=== PATIENT | male | born 1955 | race Caucasian/White ===

== ENCOUNTER 2020-09-01 21:48 | Emergency (ER) | payer MEDICARE, MEDICAID ==
[~2020-09-01] VITALS: Ht 177.8 cm; Wt 71.7 kg
[2020-09-01 21:56] VITALS: BP 150/81
[2020-09-01] MEDS: BACITRACIN OINT 500 UNITS/GM PKT TP ONE (22:25)
[2020-09-01 22:55] VITALS: BP 150/81
== END 2020-09-01 22:56 | disposition home or self-care (01) ==
LOC: MED 21:48
DX: S81.802A Unspecified open wound, left lower leg, initial encounter (principal); X58.XXXA Exposure to other specified factors, initial encounter; Y93.89 Activity, other specified; Y92.89 Other specified places as the place of occurrence of the external cause; Y99.8 Other external cause status
CPT/HCPCS: 99282; 99283

== ENCOUNTER 2020-09-21 12:41 | Emergency (ER) | payer MEDICARE, MEDICAID ==
[~2020-09-21] VITALS: Ht 182.9 cm; Wt 72.6 kg
[2020-09-21 12:44] VITALS: BP 156/78
--- NOTE | 2020-09-21 12:52 | NUR ---
PATIENT AMBULATED TO ER BED 04
--- NOTE | 2020-09-21 13:16 | NUR ---
65 YEAR OLD MALE REFUSES PRIMARY NURSE ASSESSMENT, STATES THAT HE ALREADY TALKED TO THE TRIAGE NURSE AND DOES NOT WANT TO REPEAT ANYTHING. TRIAGE REPORTS PT IS HERE FOR LEFT FOOT ABSCESS. PT ALERT AND AWAKE, BREATHING EVEN AND UNLABORED. BED IN LOWEST POSITION, LOCKED, BED RAIL UPX1. PMH - NEUROPATHY ALLERGIES - NKA
--- NOTE | 2020-09-21 13:30 | NUR ---
PATIENT VERBALLY ABUSIVE TO STAFF, YELLING "FUCK YOU." SECURITY CALLED
--- NOTE | 2020-09-21 13:52 | NUR ---
PATIENT LEFT FACILITY AT THIS TIME WITHOUT TELLING PRIMARY NURSE BEFORE DISCHARGE GIVEN, CHARGE NURSE AWARE
--- NOTE | 2020-09-21 14:09 | NUR ---
Noemy jung in ED - 09/21/20 at 1410 by [email or web address] STILL UNABLE TO FIND PATIENT, HAS NOT RETURNED TO ROOM. CHARGE NURSE AWARE
--- NOTE | 2020-09-21 14:10 | NUR ---
PATIENT LEFT FACILITY AT THIS TIME WITHOUT TELLING PRIMARY NURSE BEFORE DISCHARGE GIVEN, CHARGE NURSE AWARE
--- NOTE | 2020-09-21 14:30 | NUR ---
Patient discharged with v/s stable. Written and verbal after care instructions about skin ulcer given and explained. Patient alert, oriented and verbalized understanding of instructions. Ambulatory with steady gait. All questions addressed prior to discharge. ID band removed. Patient advised to follow up with PMD. Rx of tramadol given. Patient educated on indication of medication including possible reaction and side effects. Opportunity to ask questions provided and answered.
[2020-09-21 14:33] VITALS: BP 156/78
== END 2020-09-21 14:30 | disposition home or self-care (01) ==
LOC: MED 12:41
DX: L98.499 Non-pressure chronic ulcer of skin of other sites with unspecified severity (principal); F17.200 Nicotine dependence, unspecified, uncomplicated; Z98.890 Other specified postprocedural states
CPT/HCPCS: 99283